=== PATIENT | female | born 1990 | race Caucasian/White ===

== ENCOUNTER 2016-08-03 21:30 | Inpatient (IN) | payer BC ==
[2016-08-03 23:01] LABS: Hematocrit 38 % (35-47); Hemoglobin 12.4 g/dl (12.0-16.0); Mean Corpuscular HGB Conc 32 g/dl (31-36); Mean Corpuscular Hemoglobin 27 pg (27-31); Mean Corpuscular Volume 84 fL (80-97); Mean Platelet Volume 9 um3 (7.4-10.4); Red Blood Count 4.58 10^6/ul (4.0-5.4); Red Cell Distribution Width 17 % (10.5-15); White Blood Count 14.3 10^3/ul (3.5-10.8)
[2016-08-03 23:03] LABS: Add Diff/Slide Review? Slide Review Added; Comments Flag Yes
[2016-08-04] MEDS ORDERED: Oxytocin in LR* 20 UNITS/1,000 ML BAG IVPB ONE (04:18)
[2016-08-04] MEDS ORDERED: Witch Hazel PAD* JAR TOPICAL PRN (06:59)
[2016-08-04] MEDS ORDERED: Glycerin ADULT SUPP PR PRN (06:59)
[2016-08-04] MEDS ORDERED: oxyCODONE/Acetamin 5/325 MG* TAB PO PRN (06:59)
[2016-08-04] MEDS ORDERED: Oxytocin in LR* 20 UNITS/1,000 ML BAG IVPB SCH (07:00)
[2016-08-04] MEDS: Docusate CAP* 100 MG PO SCH ×3 (08:17→20:57)
[2016-08-04] MEDS: Ibuprofen TAB* 600 MG PO PRN ×3 (08:18→20:57)
[2016-08-04] MEDS: Dibucaine 1% 28.35 GM TUBE PR PRN (08:19)
[2016-08-05] MEDS: Acetaminophen TAB* 325 MG PO PRN ×3 (00:19→23:58)
[2016-08-05] MEDS: Ibuprofen TAB* 600 MG PO PRN ×3 (04:07→20:37)
[2016-08-05 06:33] LABS: Hematocrit 37 % (35-47); Hemoglobin 11.8 g/dl (12.0-16.0); Mean Corpuscular HGB Conc 32 g/dl (31-36); Mean Corpuscular Hemoglobin 27 pg (27-31); Mean Corpuscular Volume 85 fL (80-97); Mean Platelet Volume 9 um3 (7.4-10.4); Red Blood Count 4.37 10^6/ul (4.0-5.4); Red Cell Distribution Width 17 % (10.5-15); White Blood Count 14.2 10^3/ul (3.5-10.8)
[2016-08-05] MEDS ORDERED: Ferrous Gluconate TAB* 324 MG TAB PO SCH (09:00)
[2016-08-05] MEDS: Docusate CAP* 100 MG PO SCH ×3 (09:07→20:37)
[2016-08-06] MEDS: Ibuprofen TAB* 600 MG PO PRN ×2 (02:34→08:21)
[2016-08-06] MEDS: Docusate CAP* 100 MG PO SCH (08:21)
[2016-08-06 08:48] VITALS: BP 116/70
[2016-08-06] MEDS: Dibucaine 1% 28.35 GM TUBE PR PRN (11:16)
== END 2016-08-06 11:22 | disposition home or self-care (01) | DRG 560 ==
LOC: MCHOBOUT 21:30 → MCHOB 22:24
PROVIDERS: ADMIT Midwife; ATTEND Midwife
PROC: 10E0XZZ Delivery of Products of Conception, External Approach (ICD-10-PCS; principal; 2016-08-04)
PROC: 0HQ9XZZ Repair Perineum Skin, External Approach (ICD-10-PCS; 2016-08-04)
DX: O48.0 Post-term pregnancy (principal); F17.210 Nicotine dependence, cigarettes, uncomplicated; Z3A.41 41 weeks gestation of pregnancy; O99.824 Streptococcus B carrier state complicating childbirth; O99.334 Smoking (tobacco) complicating childbirth; O70.0 First degree perineal laceration during delivery; O77.0 Labor and delivery complicated by meconium in amniotic fluid; Z37.0 Single live birth
CPT/HCPCS: 36415; 85025; 85027; 86850; 86900; 86901; A9270-GY

== ENCOUNTER 2018-03-27 13:13 | Emergency (ER) | payer BC ==
--- NOTE | 2018-03-27 15:06 | UC ---
Respiratory Complaint HPI - HPI Summary HPI Summary: Patient is a 27-year-old female that 2 days ago had the onset of nasal congestion, postnasal drip, mild sore throat, itchy eyes, and mild cough. She has not been febrile. Yesterday she missed work and she slept most of the day. Last night she had the onset of lower back pain. This was associated with crampy diffuse abdominal pain. The pain is been mild. Occasionally it doubles her over. Seems to be worse when she is walking. He has not had any UTI symptoms. She she denies any vaginal discharge or itch. She denies any chest pain or shortness of breath. - History of Current Complaint Chief Complaint: UCRespiratory Stated Complaint: ABD PAIN SORE THROAT CHEST CONGESTION Time Seen by Provider: 03/27/18 14:51 Hx Obtained From: Patient Hx Last Menstrual Period: 03/14/18 Onset/Duration: Gradual Onset Timing: Constant Severity Initially: Moderate Severity Currently: Mild Pain Intensity: 1 Pain Scale Used: 0-10 Numeric Character: Cough: Nonproductive Aggravating Factors: Nothing Associated Signs And Symptoms: Positive: URI, Nasal Congestion, Sinus Discomfort - Allergies/Home Medications Allergies/Adverse Reactions: Allergies Allergy/AdvReac Type Severity Reaction Status Date / Time No Known Allergies Allergy Verified 03/27/18 13:27 PMH/Surg Hx/FS Hx/Imm Hx Previously Healthy: Yes - Surgical History Surgical History: None - Family History Known Family History: Positive: Hypertension - Social History Alcohol Use: Weekly Substance Use Type: None Smoking Status (MU): Light Every Day Tobacco Smoker Type: Cigarettes Have You Smoked in the Last Year: Yes Household Exposure Type: Cigarettes - Immunization History Most Recent Influenza Vaccination: 02/11/16 Most Recent Pneumonia Vaccination: never Review of Systems All Other Systems Reviewed And Are Negative: Yes Constitutional: Positive: Fatigue Eyes: Positive: Other - itchy eyes ENT: Positive: Nasal Discharge, Sinus Congestion, Sinus Pain/Tenderness Respiratory: Positive: Cough - rare Gastrointestinal: Positive: Abdominal Pain - crampy/intermittent Genitourinary: Positive: Negative Motor: Positive: Negative Neurovascular: Positive: Negative Neurological: Positive: Negative Psychological: Positive: Negative Is Patient Immunocompromised?: No Physical Exam Triage Information Reviewed: Yes Appearance: Well-Appearing, No Pain Distress, Well-Nourished Vital Signs: Initial Vital Signs Temp 98.3 F 03/27/18 13:23 Pulse 68 03/27/18 13:23 Resp 18 03/27/18 13:23 BP 113/72 03/27/18 13:23 Pulse Ox 100 03/27/18 13:23 Vital Signs Reviewed: Yes Eyes: Positive: Conjunctiva Clear ENT: Positive: Hearing grossly normal, Pharyngeal erythema, Nasal congestion, TMs normal, Sinus tenderness - mild maxillary, Uvula midline. Negative: Nasal drainage, Tonsillar swelling, Tonsillar exudate, Trismus, Muffled voice, Hoarse voice, Dental tenderness Dental Exam: Normal Neck: Positive: Supple, Nontender, Enlarged Nodes @ - few small ant cerv nodes Respiratory: Positive: Lungs clear, Normal breath sounds, No respiratory distress, No accessory muscle use Cardiovascular: Positive: RRR, No Murmur Abdomen Description: Positive: No Organomegaly, Soft. Negative: Nontender - diffuse mild tenderness, most tender left side, Bruit, CVA Tenderness (R), CVA Tenderness (L) Bowel Sounds: Positive: Present Musculoskeletal: Positive: ROM Intact, No Edema Neurological: Positive: Alert Psychological Exam: Normal Skin Exam: Normal UC Diagnostic Evaluation - Laboratory O2 Sat by Pulse Oximetry: 100 - normal/not hypoxic Diagnostic Studies Comment: strep(-). UA tr leuks. uHCG (-) Respiratory Course/Dx - Differential Dx/Diagnosis Provider Diagnosis: Acute viral syndrome Discharge - Sign-Out/Discharge Documenting (check all that apply): Patient Departure All imaging exams completed and their final reports reviewed: No Studies - Discharge Plan Condition: Stable Disposition: HOME Patient Education Materials: Viral Syndrome (ED) Forms: *Work Release Referrals: No Primary Care Phys,NOPCP [Primary Care Provider] - Additional Instructions: rest fluids recheck for new or worsening symptomws recheck if abd pain becomes constant recheck in 3-4 days if not completely better - Billing Disposition and Condition Condition: STABLE Disposition: Home
[2018-03-27 15:40] VITALS: BP 111/68
== END 2018-03-27 15:41 | disposition home or self-care (01) ==
LOC: UCEAST 13:13
DX: B34.9 Viral infection, unspecified (principal); R09.81 Nasal congestion; J02.9 Acute pharyngitis, unspecified; R09.89 Other specified symptoms and signs involving the circulatory and respiratory systems; F17.210 Nicotine dependence, cigarettes, uncomplicated
CPT/HCPCS: 81003; 84702; 87086; 87651; 99211; G0463

== ENCOUNTER 2019-06-21 10:14 | Emergency (ER) | payer BC ==
[2019-06-21 10:27] VITALS: BP 133/85
--- NOTE | 2019-06-21 10:47 | ED ---
HPI Chest Pain - HPI Summary HPI Summary: 28 yo WF p/w SOB and sharp chest pain with cough and mild sore throat x few days. Pt has no pmhx but takes OCPs, denies chills, abd pain/v/d or nasal congestion - History of Current Complaint Chief Complaint: UCGeneralIllness Time Seen by Provider: 06/21/19 10:29 Hx Obtained From: Patient Hx From Patient Unobtainable Due To: Other Hx Last Menstrual Period: 05/23/19 Onset/Duration: Started Days Ago Timing: Intermittent Initial Severity: Moderate Current Severity: Moderate Pain Intensity: 1 Chest Pain Location: Left Anterior, Right Anterior - Allergy/Home Medications Allergies/Adverse Reactions: Allergies Allergy/AdvReac Type Severity Reaction Status Date / Time No Known Allergies Allergy Verified 06/21/19 10:27 Home Medications: Home Medications Norethindrone-E.estradiol-Iron [Melodetta 24 Fe Chewable Tab] 1 tab PO DAILY [History Confirmed 06/21/19] PMH/Surg Hx/FS Hx/Imm Hx Previously Healthy: Yes Infectious Disease History: No Infectious Disease History: Denies: Traveled Outside the [place] in Last 30 Days - Family History Known Family History: Positive: Hypertension - Social History Occupation: Employed Part-time Alcohol Use: Weekly Hx Substance Use: No Substance Use Type: Reports: None Smoking Status (MU): Light Every Day Tobacco Smoker Type: Cigarettes Have You Smoked in the Last Year: Yes Review of Systems Constitutional: Negative Eyes: Negative Positive: Sore Throat Positive: Chest Pain Positive: Shortness Of Breath, Cough Gastrointestinal: Negative Genitourinary: Negative Musculoskeletal: Negative Skin: Negative Neurological/Mental Status: Negative Psychological: Normal All Other Systems Reviewed And Are Negative: Yes Physical Exam - Summary Physical Exam Summary: Vital Signs Reviewed: Yes Gen: NAD Eye Exam: Normal Eyes: Positive: Conjunctiva Clear ENT: Normal ENT inspection Neck: Supple Respiratory: Lungs clear, Normal breath sounds. mild rhonchi with cough Cardiovascular Exam: Normal, RRR, S1, S2 Abdomen: NT/ND Musculoskeletal Exam: Normal Neurological Exam: Normal Psychological Exam: Normal Skin Exam: Normal Triage Information Reviewed: Yes Vital Signs On Initial Exam: Initial Vitals Temp Pulse Resp BP Pulse Ox 36.6 C 93 13 133/85 99 06/21/19 10:24 06/21/19 10:24 06/21/19 10:24 06/21/19 10:24 06/21/19 10:24 Appearance: Positive: No Pain Distress Diagnostics - Vital Signs Vital Signs Temp Pulse Resp BP Pulse Ox 06/21/19 10:24 36.6 C 93 13 133/85 99 - Laboratory Lab Statement: Any lab studies that have been ordered have been reviewed, and results considered in the medical decision making process. Chest Pain Course/Dx - Diagnoses Provider Diagnoses: SOB (shortness of breath), Chest discomfort Discharge ED - Sign-Out/Discharge Documenting (check all that apply): Patient Departure All imaging exams completed and their final reports reviewed: Yes - Discharge Plan Condition: Stable Disposition: HOME Patient Education Materials: Dyspnea (ED), Acute Bronchitis (ED) Additional Instructions: GO TO ED IF SOB CONTINUES IN SPITE OF INHALER USE or if symptoms worsen - Billing Disposition and Condition Condition: STABLE Disposition: Home
[2019-06-21 11:00] LABS: Influenza A Molecular Negative (Negative); Influenza B Molecular Negative (Negative)
[2019-06-21] MEDS ORDERED: Albuterol HFA INHALER* 8 gm MDI INH ONE (11:21)
[2019-06-21] MEDS ORDERED: Albuterol 2.5 MG/3 ML NEB.SOL* (0.083%) INH ONE (11:22)
== END 2019-06-21 11:40 | disposition home or self-care (01) ==
LOC: UCEAST 10:14
DX: R06.02 Shortness of breath (principal); R07.89 Other chest pain; R05 Cough; J02.9 Acute pharyngitis, unspecified; F17.210 Nicotine dependence, cigarettes, uncomplicated
CPT/HCPCS: 71046; 87651; 93005; 99211; A9270-GY; G0463